=== PATIENT | male | born 1980 | race Caucasian/White ===

== ENCOUNTER 2018-01-18 13:24 | Emergency (ER) | payer BC ==
--- NOTE | 2018-01-18 14:35 | EDPHY ---
H & P Stated Complaint: 1.5 wks dizzyness/nausea "feels foggy" saw pcp last week/not better Time Seen by Provider: 01/18/18 14:35 HPI/ROS: CHIEF COMPLAINT: Episodic bouts of confusion HISTORY OF PRESENT ILLNESS: The patient presents to the ED after he has had several bouts of intermittent confusion over the past several weeks. The patient does admit to being under some stress work. The patient denies any acute headache or focal neurologic symptoms. The patient did see his primary care provider in [place] for evaluation of the symptoms and had an unremarkable CBC and comprehensive metabolic panel. The patient denies any history of fall or trauma. He denies any neck pain or cervical manipulation. The patient takes no regular medications. He reportedly has had an increase in the frequency of these episodes over the past several days. Patient denies any palpitations or chest pain. The patient denies any fever or recent travel outside the [place]. The patient is otherwise asymptomatic. REVIEW OF SYSTEMS: A comprehensive 10 point review of systems is otherwise negative aside from elements mentioned in the history of present illness. Source: Patient Exam Limitations: No limitations - Personal History Current Tetanus/Diphtheria Vaccine: Yes - Medical/Surgical History Hx Asthma: No Hx Chronic Respiratory Disease: No Hx Diabetes: No Hx Cardiac Disease: No Hx Renal Disease: No Hx Cirrhosis: No Hx Alcoholism: No Hx HIV/AIDS: No Hx Splenectomy or Spleen Trauma: No Other PMH: denies - Social History Smoking Status: Never smoked - Physical Exam Exam: General Appearance: Alert, no distress Eyes: Pupils equal and round no pallor or injection ENT, Mouth: Mucous membranes moist Respiratory: There are no retractions, lungs are clear to auscultation Cardiovascular: Regular rate and rhythm Gastrointestinal: Abdomen is soft and nontender, no masses, bowel sounds normal Neurological: A&O, normal motor function, normal sensory exam, normal cranial nerves Skin: Warm and dry, no rashes Musculoskeletal: Neck is supple nontender Extremities: symmetrical, full range of motion Psychiatric: Patient is oriented X 3, there is no agitation Constitutional: Initial Vital Signs Temperature (C) 36.8 C 01/18/18 13:34 Heart Rate 82 01/18/18 13:34 Respiratory Rate 18 01/18/18 13:34 Blood Pressure 147/91 H 01/18/18 13:34 O2 Sat (%) 94 01/18/18 13:34 O2 Delivery Mode Room Air Allergies/Adverse Reactions: No Known Allergies Allergy (Unverified 01/18/18 13:33) Home Medications: Medication Instructions Recorded NK [No Known Home Meds] 01/18/18 Medical Decision Making ED Course/Re-evaluation: The patient presents to the ED for evaluation of some vague neurologic symptoms over the past several weeks. He is neurologically intact upon my examination. The patient has no fever or meningeal symptoms. The patient's blood pressure and heart rate are noted to be normal. The patient's laboratory studies continued to be reassuring with no evidence of a critical anemia, metabolic abnormality or thyroid issue. At this point time I do not feel that further emergency department workup is indicated. He is either having symptoms secondary to increasing stress perhaps precipitating some anxiety or potentially a migraine variant. The patient will be advised to return to the ED for markedly worsening symptoms such is the development of a severe headache, focal neurologic symptoms or other concerns. The patient is referred to our on-call local neurologist for further evaluation. Differential Diagnosis: Differential diagnosis considered includes dehydration, migraine variant, anxiety, hypothyroidism - Data Points Laboratory Results: Laboratory Results 01/18/18 15:00 01/18/18 15:00 01/18/18 01/18/18 15:00 15:00 WBC 7.00 10^3/uL 10^3/uL (3.80-9.50) RBC 4.65 10^6/uL 10^6/uL (4.40-6.38) Hgb 14.2 g/dL g/dL (13.7-17.5) Hct 39.8 % L % (40.0-51.0) MCV 85.6 fL fL (81.5-99.8) MCH 30.5 pg pg (27.9-34.1) MCHC 35.7 g/dL g/dL (32.4-36.7) RDW 11.9 % % (11.5-15.2) Plt Count 182 10^3/uL 10^3/uL (150-400) MPV 9.9 fL fL (8.7-11.7) Neut % (Auto) 50.9 % % (39.3-74.2) Lymph % (Auto) 40.6 % % (15.0-45.0) [place] % (Auto) 6.4 % % (4.5-13.0) Eos % (Auto) 1.1 % % (0.6-7.6) Baso % (Auto) 0.9 % % (0.3-1.7) Nucleat RBC Rel Count 0.0 % % (0.0-0.2) Absolute Neuts (auto) 3.56 10^3/uL 10^3/uL (1.70-6.50) Absolute Lymphs (auto) 2.84 10^3/uL 10^3/uL (1.00-3.00) Absolute Monos (auto) 0.45 10^3/uL 10^3/uL (0.30-0.80) Absolute Eos (auto) 0.08 10^3/uL 10^3/uL (0.03-0.40) Absolute Basos (auto) 0.06 10^3/uL 10^3/uL (0.02-0.10) Absolute Nucleated RBC 0.00 10^3/uL 10^3/uL (0-0.01) Immature Gran % 0.1 % % (0.0-1.1) Immature Gran # 0.01 10^3/uL 10^3/uL (0.00-0.10) Sodium 143 mEq/L mEq/L (135-145) Potassium 4.6 mEq/L mEq/L (3.5-5.2) Chloride 103 mEq/L mEq/L (97-110) Carbon Dioxide 25 mEq/l mEq/l (22-31) Anion Gap 15 mEq/L mEq/L (8-16) BUN 16 mg/dL mg/dL (7-23) Creatinine 0.8 mg/dL mg/dL (0.7-1.3) Estimated GFR > 60 Glucose 89 mg/dL mg/dL (70-100) Calcium 9.7 mg/dL mg/dL (8.5-10.4) TSH 1.500 uIU/mL uIU/mL (0.465-4.680) Departure - Departure Disposition: Home, Routine, Self-Care Clinical Impression: Altered mental status, unspecified Condition: Good Instructions: Altered Mental Status (ED) Additional Instructions: 1. The laboratory testing in the emergency department today demonstrates no acute abnormality. 2. Your symptoms may be the result of some increasing stress at work or potentially may be the result of a migraine variant. At this point time I do not feel that further emergency department workup is indicated. If you continue to have ongoing symptoms I do recommend following up with a neurologist. You have been referred to our on-call neurologist Dr. Sousa. 3. Please return to the emergency department for fever, severe headache, numbness/weakness on one side of the body relative to the other. Referrals: Atif Sousa MD [Medical Doctor] - As per Instructions
[2018-01-18 15:28] LABS: PLATELET COUNT 182 10^3/uL (150-400)
[2018-01-18 16:40] VITALS: BP 124/83; PULSE 70; RESP 16; TEMP 98.8; O2SAT 95
== END 2018-01-18 16:40 | disposition home or self-care (01) ==
DX: R41.82 Altered mental status, unspecified (principal)